=== PATIENT | female | born 1965 | race Caucasian/White ===

== ENCOUNTER → 2018-08-13 | Outpatient (CLI) | payer OTHER ==
[~2018-08-13] MED LIST: IBUPROFEN 200200 M1 PO; LORTAB; NOHOMEMEDICATIONS
== END ==
LOC: RAD 10:50
DX: Z12.31 Encounter for screening mammogram for malignant neoplasm of breast (principal)

== ENCOUNTER → 2018-08-25 | Outpatient (CLI) | payer OTHER | LOC: RAD 02:01 | DX: N60.01 Solitary cyst of right breast (principal); N60.02 Solitary cyst of left breast ==

== ENCOUNTER → 2019-04-12 | Outpatient (CLI) | payer OTHER | LOC: BC 13:05 | DX: N60.01 Solitary cyst of right breast (principal); N60.02 Solitary cyst of left breast; R92.1 Mammographic calcification found on diagnostic imaging of breast ==

== ENCOUNTER → 2020-05-15 | Outpatient (CLI) | payer OTHER | LOC: RAD 13:17 | PROVIDERS: ATTEND Family Medicine | DX: Z12.31 Encounter for screening mammogram for malignant neoplasm of breast (principal) ==